=== PATIENT | male | born 1950 | race Caucasian/White ===

== ENCOUNTER 2018-11-20 07:57 | Outpatient (CLI) | payer MEDICARE ==
--- NOTE | 2018-11-20 09:23 | MRI ---
MRI LEFT KNEE WITHOUT CONTRAST: HISTORY: M17.12, primary osteoarthritis of the left knee. COMPARISON: None. FINDINGS: Medial Meniscus: Undersurface flap tear body of posterior horn medial meniscus with medial gutter extrusion of the fla p fragment. There is also extension of the flap tear into a radio-oblique tear at the posterior horn approximately 9 mm from the foot print. Lateral Meniscus: There is no normal posterior root attachment remaining at the lateral meniscus with only scar tissue. There is extensive free edge fraying of the lateral meniscal body. The ACL and PCL, MCL, and LCL are intact. Extensor Mechanism: Quadriceps tendon and patella are intact as well as patella tendon. There is some mild delamination of the central plate of the quadriceps tendon. Cartilage: Patellofemoral Compartment: Some high-grade cartilage fissures of the medial patellar facet with some coraco-marrow changes. The same is true for the lateral patella facet and patellar apex with some delamination. Medial Compartment: There is cartilage dehydration in the posterior weightbearing surface of the medial femoral condyle w ith softening. There are also a few 50-60% cartilage fissures. Lateral Compartment: Multifocal 75% cartilage fissuring posterior weightbearing surface lateral femoral condyle. Bones: There is a benign osteochondroma along the medial tibial metaphysis. IMPRESSION: 1. Undersurface flap tear of the body and posterior horn medial meniscus extending into a radial obl ique tear at the posterior root attachment. There is gutter extrusion at the flap fragment. 2. Scar granulation tissue affixing likely a chronic full-thickness radial tear of the posterior jagjit t attachment of lateral meniscus. No significant gutter extrusion. There is free edge fraying throu ghout the body and posterior horn. 3. Benign osteochondroma along the medial margin of the tibial metaphysis. 4. Mild delamination of the central aponeurotic plate of the quadriceps tendon upon the patella. 5. 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 POS: [facility]
== END 2018-11-20 07:58 | disposition home or self-care (01) ==
LOC: TBSIIMAG 07:57
PROVIDERS: ATTEND Orthopaedic Surgery
DX: M17.12 Unilateral primary osteoarthritis, left knee (principal); M25.562 Pain in left knee; S83.242A Other tear of medial meniscus, current injury, left knee, initial encounter; S83.282A Other tear of lateral meniscus, current injury, left knee, initial encounter; D16.22 Benign neoplasm of long bones of left lower limb; M22.42 Chondromalacia patellae, left knee